=== PATIENT | male | born 1990 | race Caucasian/White ===

== ENCOUNTER 2018-02-06 20:35 | Inpatient (IN) | payer BC, OTHER ==
[~2018-02-06] VITALS: Ht 195.6 cm; Wt 77.1 kg
[2018-02-06 23:31] LABS: BASOPHILS # (AUTO) 0.1 K/uL (0.0-8.0); BASOPHILS % (AUTO) 1.2 % (0.0-2.0); EOSINOPHILS # (AUTO) 0.6 K/uL (0.0-0.7); EOSINOPHILS % (AUTO) 6.8 % (0.0-7.0); HEMATOCRIT 40.6 % (36.7-47.1); HEMOGLOBIN 14.1 g/dL (12.5-16.3); LYMPHOCYTES % (AUTO) 32.1 % (20.5-51.5); MEAN CORPUSCULAR HEMOGLOBIN 30.6 uug (23.8-33.4); MEAN CORPUSCULAR HGB CONC 35 g/dL (32.5-36.3); MEAN CORPUSCULAR VOLUME 88.3 fL (73.0-96.2); MONOCYTES # (AUTO) 0.6 K/uL (2.0-10.0); NEUTROPHILS # (AUTO) 5.1 K/uL (1.8-8.9); NEUTROPHILS % (AUTO) 53.9 % (38.5-71.5); PLATELET COUNT (AUTO) 274 K/uL (152-348); WHITE BLOOD COUNT (AUTO) 9.4 K/uL (3.6-10.2)
[2018-02-07 00:01] LABS: ALANINE AMINOTRANSFERASE 33 U/L (16-63); ALKALINE PHOSPHATASE 146 U/L (50-136); AMYLASE 69 U/L (25-115); ASPARTATE AMINOTRANSFERASE 17 U/L (15-37); BILIRUBIN,TOTAL 0.3 mg/dL (0.2-1.0); CARBON DIOXIDE 26 mmol/L (21-32); CHLORIDE 104 mmol/L (98-107); CREATININE 1.2 mg/dL (0.6-1.3); GLUCOSE 122 mg/dL (74-106); LIPASE 275 U/L (73-393); POTASSIUM 3.8 mmol/L (3.5-5.1); TOTAL PROTEIN, SERUM 7.5 g/dL (6.4-8.2); UREA NITROGEN, BLOOD 12 mg/dL (7-18)
[2018-02-07 00:04] LABS: *AMPHETAMINE, URINE NEGATIVE (NEGATIVE); *BARBITURATE, URINE NEGATIVE (NEGATIVE); *CANNABINOID, URINE NEGATIVE (NEGATIVE); *COCCAINE, URINE POSITIVE (NEGATIVE); *OPIATE, URINE POSITIVE (NEGATIVE); *PHENCYCLIDINE SCREEN,URINE NEGATIVE (NEGATIVE)
--- NOTE | 2018-02-07 00:15 | NUR ---
PRE ADMISSION NOTE PT is a 27 y/o male seen at intake, A&O x 4 and presents with anxiety, flushed skin, chills, agitation, restlessness, flat affect, slumped posture and is fidgety. Pt is ambulatory with a steady gait. Vital signs: BP 137/57, HR 74, T 98.2 F, RR 20, O2 99% on room air and Pain 0/10. Pt is allergic to Aspirin. Pt did not bring home medications. Pt reports PMH of anxiety, depression, anger and epilepsy. Pt reports last seizure was 2016. Educated Pt about rules and policies of the unit including handling of contraband and taking vital signs Q4H. Will continue care of Pt upon arrival on unit.
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
[2018-02-07] MEDS ORDERED: MIRALAX 17 GM POWD.PACK PO PRN (01:00)
[2018-02-07] MEDS ORDERED: LOPERAMIDE HCL 2 MG CAPSULE PO PRN ×2 (01:00)
[2018-02-07] MEDS ORDERED: diphenhydrAMINE 50 MG CAPSULE PO PRN (01:00)
[2018-02-07] MEDS ORDERED: MAGNESIUM HYDROXIDE 30 ML LIQUID UDC PO PRN (01:00)
[2018-02-07] MEDS ORDERED: CLONIDINE HCL 0.1 MG TABLET PO PRN (01:00)
[2018-02-07] MEDS ORDERED: BUPRENORPHINE HCL 2 MG TAB.SUBL SL PRN (01:00)
[2018-02-07] MEDS ORDERED: ONDANSETRON ODT 4 MG TAB.RAPDIS SL PRN (01:00)
[2018-02-07] MEDS ORDERED: LORAZEPAM 2 MG/1 ML VIAL IM PRN (01:00)
[2018-02-07] MEDS ORDERED: ONDANSETRON 4 MG/2 ML VIAL IM PRN (01:00)
[2018-02-07 01:11] LABS: ETHANOL < 3 MG/DL (0-0)
--- NOTE | 2018-02-07 04:00 | NUR ---
COWS DEFERRED AND VITAL SIGNS REFUSED Patient is noted in bed with eyes closed. Breathing even and non labored. COWS and vital signs not able to be completed per order. Safety measures in place. Call light within reach. Will continue to monitor.
--- NOTE | 2018-02-07 07:15 | NUR ---
END OF SHIFT Pt is a 27 y/o male admitted on 02/06/18 for opiate withdrawal. Pt presented with anxiety, flushed skin, chills, agitation, restlessness, flat affect, slumped posture and is fidgety. Pt is ambulatory with a steady gait. Pt has not started any taper yet. Pt has no scheduled medications and no PRN medication were given. Last COWS 9. Pt slept 3hours. Intake 800 ml, void 1, stool 0. Safety measures in place. Call light within reach. Pt's needs have been met. Endorsed to day shift nurse.
--- NOTE | 2018-02-07 07:40 | NUR ---
START OF SHIFT Rcvd endorse from ongoing nurse, client is in room, sounds asleep, easy to arouse, RR 18, even, non-labored, skin dry and warm to touch, flushed face noted. Last COWS 9 @ 0015. Seizure precautions in place. call light within reach.
[2018-02-07 08:10] VITALS: BP 90/60
--- NOTE | 2018-02-07 08:15 | NUR ---
COWS 10 Client reports pain on R wrist 8/10, he reports swelling, unable to assess site because client declined to removed félix bandage unless loan underwriter is going to prescribe something for him right away, notify client that MD will reassess client and he would make recommendation of care. Client appears anxious, agitated, runny nose, yawning, and difficulty concentrating. He reports stomach cramps. Client declines pain medication or comfort measures for his R wrist until seen by MD. Call light within reach.
[2018-02-07] MEDS: MULTIVITAMINS,THERAPEUTIC TABLET PO SCH (09:00)
--- NOTE | 2018-02-07 10:10 | NUR ---
Nursing note Client reports an aura before an epileptic episode, 1-2 minutes before he sees starts or feels very dizzy.
[2018-02-07] MEDS: ESCITALOPRAM OXALATE 10 MG TABLET PO SCH (11:39)
[2018-02-07 12:51] VITALS: BP 122/71
[2018-02-07] MEDS: DICYCLOMINE HCL 20 MG TABLET PO PRN (12:54)
[2018-02-07] MEDS: ACETAMINOPHEN 325 MG TABLET PO PRN (12:54)
--- NOTE | 2018-02-07 12:54 | NUR ---
COWS 17 Client presents with anxious mood, flat affect, clammy skin, tremors, runny nose, yawning, decreased appetite, and fatigue. Subutex 4mf SL, PRN Bentyl 20mg PO, Robaxin 750mg PO, Tylenol 650mg and Ibuprofen 600mg PO administered for abdominal spasms, myalgia on shoulders, and headache respectively. Call light within reach.
[2018-02-07] MEDS: METHOCARBAMOL 750 MG TABLET PO PRN (12:55)
[2018-02-07] MEDS: IBUPROFEN 600 MG TABLET PO PRN (12:55)
[2018-02-07] MEDS: BUPRENORPHINE HCL 2 MG TAB.SUBL SL SCH ×3 (13:02→22:06)
--- NOTE | 2018-02-07 13:54 | NUR ---
Reassess PRN Bentyl 20mg, Robaxin 750mg, Tylenol 650mg and Ibuprofen 600mg, client is laying in bed, eyes closed, RR 16, [id number], he stated, "The pills helped very little, I am trying to sleep to forget about my aches." Call light within reach.
[2018-02-07 16:45] VITALS: BP 105/60
[2018-02-07] MEDS: NEOMY/BACITRAC/POLYMI OINT 28.35 GM TUBE TOP SCH (16:48)
--- NOTE | 2018-02-07 16:49 | NUR ---
COWS 18 Client continues to present with agitated, anxious mood, flat affect, sweats, tremors, runny nose, teary eyes, flushed face, yawning, decreased appetite, and fatigue. Subutex 4mg SL, administered. Call light within reach.
--- NOTE | 2018-02-07 19:24 | NUR ---
END OF SHIFT Endorse client to incoming nurse, client is in room, a/o x 4, he continues to present with agitated, anxious mood, flat affect, sweats, tremors, runny nose, teary eyes, flushed face, yawning, decreased appetite, and fatigue. Last COWS 18 @ 1700. PRN medications administered and noted per protocol. Client not compliant with group therapy due to above withdrawals symptoms. Adequate Po fluid intake 2000mL, void x 5, stool x 1. Seizure precautions.Call light within reach.
--- NOTE | 2018-02-07 19:50 | NUR ---
Start of Shift Note Received 27 y/o male russell, admitted for medically withdrawals from opiate. Px was placed on 4 day Subutex taper started on 02/07/2018. Last reported COWS 18 at 1645 by AM shift nurse. During the rounds at 1950, russell is asleep on bed in fowlers position. Food and drinks noted on top of his bed side table and shelves. Bed on lowest position, side rails up 2x and call light within reach. We'll continue to monitor.
[2018-02-07 20:00] VITALS: BP 107/52
--- NOTE | 2018-02-07 20:00 | NUR ---
COWS deferred COWS deferred due to the px is asleep. To assess if the px is awake per doctor's order. We'll continue to monitor.
--- NOTE | 2018-02-07 21:50 | NUR ---
COWS 12 Px appears drowsy and depressed. Px stated that his anxiety is low because he just woke up. Px has good eye contact. Px is suspicious. Px ask the name of his nurse and wrote it on a small notebook. Px also ask about his night medications. Medications' effect and side effects were discussed. Px complained of right wrist pain of 6/10 but refused to take medications or warm compress application. He also said he has sweats, stuffy nose, teary eyes and stomach cramps. Bilateral hand tremors noted. We'll continue to monitor.
--- NOTE | 2018-02-07 21:50 | NUR ---
Px woke up Px woke up to take his night medications. Px appears drowsy and depressed. Px stated that his anxiety is low because he just woke up. Px is disheveled, unshaven and unkempt with dirty fingernails. Px is suspicious. Px ask the name of his nurse and wrote it on a small notebook. Px also ask about his night medications. Medications' effect and side effects were discussed. Px complained of right wrist pain of 6/10 but refused to take medications or warm compress application. He also said he has sweats, stuffy nose, teary eyes and stomach cramps. We'll continue to monitor.
[2018-02-07] MEDS: QUETIAPINE FUMARATE 25 MG TABLET PO SCH (22:01)
--- NOTE | 2018-02-07 22:36 | NUR ---
Reassessment COWS 12 Px stated that his anxiety is mild. Px has right wrist pain of 6/10 but refused to take medications or warm compress application. He also said he has sweats, stuffy nose, teary eyes and stomach cramps. Bilateral hand tremors noted. AL= 67. We'll continue to monitor.
[2018-02-08] VITALS: BP 113/60
--- NOTE | 2018-02-08 | NUR ---
Reassessment COWS 12 Px is still awake but looks sleepy. He stated that his anxiety is fine. Px has right wrist pain of 6/10. He has sweats, stuffy nose, teary eyes and stomach cramps. Bilateral hand tremors noted. OR= 64. We'll continue to monitor.
[2018-02-08 04:00] VITALS: BP 110/59
--- NOTE | 2018-02-08 04:00 | NUR ---
COWS deferred COWS deferred due to the px is asleep. To assess if the px is awake per doctor's order. We'll continue to monitor.
--- NOTE | 2018-02-08 07:10 | NUR ---
End of Shift Note During the shift, px didn't received any PRN medications. Last COWS 12. Px oral intake is 1000 ml, voided 2x, without BM. Px slept for 5 hours total. At 0630, px is asleep on bed in fowlers position. Bed on lowest position, side rails up 2x and call light within reach. We'll continue to monitor. Px is endorsed to AM shift.
--- NOTE | 2018-02-08 07:24 | NUR ---
Start Of Shift: Patient is a 27 yr old male who was admitted to [facility] on 02/06/18 for a medically supervised withdrawal from Opiates ( heroin), Cocaine, mushrooms and LSD. He has been placed on a 4 day Subutex taper and this is day 2. No PRN medications were given on PM shift, he slept for 5+ hours and his last COWS was 12 @ midnight. He is awake in his room at this time and requests a band aid for scab on chest which has opened up, antibiotic cream to be applied this AM.. Continue to follow MD plan of care and offer support as needed.
[2018-02-08 08:00] VITALS: BP 98/61
[2018-02-08] MEDS: MULTIVITAMINS,THERAPEUTIC TABLET PO SCH (08:49)
[2018-02-08] MEDS: ESCITALOPRAM OXALATE 10 MG TABLET PO SCH (08:49)
[2018-02-08] MEDS: NEOMY/BACITRAC/POLYMI OINT 28.35 GM TUBE TOP SCH ×2 (08:50→14:36)
--- NOTE | 2018-02-08 08:50 | NUR ---
TB placed Left forearm
[2018-02-08] MEDS ORDERED: TUBERCULIN,PURIF.PROT.DERIV. 5 TU/0.1 ML TEST ID ONE (09:00)
[2018-02-08] MEDS ORDERED: BUPRENORPHINE HCL 2 MG TAB.SUBL SL SCH (09:00)
--- NOTE | 2018-02-08 09:00 | NUR ---
COWS 11 Withdrawal symptoms include stomach spasms, restlessness, teary eyes, bilateral hand tremors, lethargy and moist clammy skin. Schedule 4MG SL Subutex given.
[2018-02-08 12:00] VITALS: BP 122/56
--- NOTE | 2018-02-08 12:20 | NUR ---
COWS 12 Withdrawal symptoms include increased agitation/irritability, restlessness, stomach irritability, aching joints and teary eyes.
--- NOTE | 2018-02-08 12:45 | NUR ---
MD Communication OK order for splint for Patients right wrist.
--- NOTE | 2018-02-08 14:35 | NUR ---
PRN Medications PRN Bentyl 20 MG Po given for stomach spasms Motrin 600mg PO , Tylenol 65 MG PO and Robaxin 750 MG PO given for C/O muscle aches and pain 01/19 Vistaril 50 MG PO given for increased anxiety and agitation will reassess
[2018-02-08] MEDS: BUPRENORPHINE HCL 2 MG TAB.SUBL SL SCH ×2 (14:36→21:56)
[2018-02-08] MEDS: IBUPROFEN 600 MG TABLET PO PRN (14:36)
[2018-02-08] MEDS: ACETAMINOPHEN 325 MG TABLET PO PRN (14:36)
[2018-02-08] MEDS: METHOCARBAMOL 750 MG TABLET PO PRN (14:36)
[2018-02-08] MEDS: DICYCLOMINE HCL 20 MG TABLET PO PRN (14:36)
[2018-02-08] MEDS: HYDROXYZINE PAMOATE 25 MG CAPSULE PO PRN (14:36)
--- NOTE | 2018-02-08 15:35 | NUR ---
PRN Reassess Bentyl 20 MG PO effective, patient reports having a bowel movement and states stomach cramps have abated. Motrin, Tylenol and Robaxin effective for pain 7/10, pain level is now 3/10 Vistaril 50 MG PO effective for anxiety and irritability.
--- NOTE | 2018-02-08 15:55 | NUR ---
COWS 12 Patient presents with stuffy nose, teary eyes, moderate to severe muscle aches, anxiety, agitation and restlessness. PRN Medications given : Bentyl for stomach cramps, Motrin, Tylenol and Robaxin for muscle aches Vistaril for anxiety/agitation.
[2018-02-08 16:00] VITALS: BP 119/63
--- NOTE | 2018-02-08 19:50 | NUR ---
End Of Shift: Patient is a 27 yr old male who was admitted to [facility] on 02/06/18 for a medically supervised withdrawal from Opiates ( Heroin), Cocaine, Psilocybin Mushrooms and LSD. He has been placed on a 4 day Subutex taper and this is day 2. Patients mood has been labile throughout the day, he can be irritable and angry or compliant and calm. His withdrawal symptoms today have included stuffy/runny nose, aching joints, stomach pain/spasms, lethargy and warm clammy skin. PRN medications given today : Motrin, Tylenol, Robaxin, Bentyl and Vistaril. He has a swollen right wrist/hand , MD ordered a splint which patient is using with félix bandage, X Ray was done which was negative for fracture. Patient has scabs on right side of chest and mid back, antibiotic ointment applied BID. He has attended groups today and is interacting with his peers. He had a fluid intake of ML, Voids and 1BM. Last COWS 12 @ 1600. Continue to follow MD plan of care and offer support as needed. Endorsed to global sales manager. Addendum: 02/08/18 at 1953 by PERCY CHINCHILLA RN he had a fluid intake of 2000 ML, 3 Voids and 1BM
[2018-02-08 20:00] VITALS: BP 107/58
--- NOTE | 2018-02-08 20:00 | NUR ---
COWS deferred COWS deferred due to the px is asleep. To assess if the px is awake per doctor's order. We'll continue to monitor.
--- NOTE | 2018-02-08 20:00 | NUR ---
Start of Shift Note Received 27 y/o male px, admitted for medically withdrawals from opiate. Px was placed on 4 day Subutex taper started on 02/07/2018. Last reported COWS 12 by AM shift nurse. During the rounds at 2000, px is asleep on bed in fowlers position. Food and drinks all over the top of bed side table and shelves. Bed on lowest position, side rails up 2x and call light within reach. We'll continue to monitor.
[2018-02-08] MEDS: QUETIAPINE FUMARATE 25 MG TABLET PO SCH (21:00)
--- NOTE | 2018-02-08 21:50 | NUR ---
COWS 12 Px just woke up. Px looks sleepy. He stated that his anxiety is mild. Px has right wrist pain of 5/10. He has sweats, stuffy nose, teary eyes and stomach cramps. Bilateral hand tremors noted. DC= 60. We'll continue to monitor.
--- NOTE | 2018-02-08 21:50 | NUR ---
Seroquel refused Px refused to take Seroquel 50 mg PO scheduled tonight. Px stated "I don't have problems in sleeping. I sleep pretty good."
[2018-02-08 22:09] LABS: HEPATITIS B SURFACE AG Negative (Negative)
--- NOTE | 2018-02-08 22:30 | NUR ---
COWS 10 Px looks drowsy and wanted to sleep. He stated that his anxiety is still mild. Px has right wrist pain of 5/10. He has sweats, stuffy nose, teary eyes and stomach cramps. Bilateral hand tremors noted. OR= 58. We'll continue to monitor.
[2018-02-09] VITALS: BP 101/55
--- NOTE | 2018-02-09 | NUR ---
COWS deferred COWS deferred due to the patient is asleep. To assess if the px is awake per doctor's order. We'll continue to monitor.
--- NOTE | 2018-02-09 03:15 | NUR ---
COWS 9 Px woke up and requesting to go smoke. Px looks drowsy. He stated that his anxiety is still mild. Px has right wrist pain of 5/10. He has sweats, stuffy nose, teary eyes and stomach cramps. Bilateral hand tremors noted. SD= 59. We'll continue to monitor.
[2018-02-09 04:00] VITALS: BP 97/62
--- NOTE | 2018-02-09 07:05 | NUR ---
End of Shift Note During the shift, russell didn't received any PRN medications. He refused the scheduled Seroquel 100 mg PO last night. Px woke up around 0315,smoked a cigarette and ate snack. COWS scored at 9. Px oral intake is 1200 ml, voided 4x, without BM. Px slept for 9 hours total. At 0630, russell is asleep on bed in fowlers position. Bed on lowest position, side rails up 2x and call light within reach. We'll continue to monitor. Px is endorsed to AM shift.
[2018-02-09] MEDS: MAG HYDROX/AL HYDROX/SIMETH 30 ML LIQUID UDC PO PRN ×2 (07:47→22:19)
[2018-02-09 08:00] VITALS: BP 115/58
--- NOTE | 2018-02-09 08:02 | NUR ---
START OF SHIFT: Received Pt A/O X 4. He presents with guarded affect and anxious mood. He is disheveled and odorous. Encourage shower today.He reports anxiety,restlessness and night sweats. He c/o tightness in his chest and states that it's common and has experienced chest tightness in the past when he is anxious. COWS 8 Subutex taper in progress. Numerous empty bottles of soda on bedside table.PRN Mylanta given to assist with tightness in chest.Will administer PRN Vistaril for anxiety. Encouraged him to avoid soda and acidic food. Encouraged group attendance to improve coping skills and prevent relapse. Will continue to monitor and manage s/s of w/d. Addendum: 02/09/18 at 0828 by CLAUDIA LOTT RN Correction COWS 9 at 0800
--- NOTE | 2018-02-09 09:00 | NUR ---
PRN mylanta effective.Pt denies chest tightness and discomfort at this time.
[2018-02-09] MEDS: HYDROXYZINE PAMOATE 25 MG CAPSULE PO PRN (09:13)
[2018-02-09] MEDS: MULTIVITAMINS,THERAPEUTIC TABLET PO SCH (09:13)
[2018-02-09] MEDS: ESCITALOPRAM OXALATE 10 MG TABLET PO SCH (09:13)
[2018-02-09] MEDS: BUPRENORPHINE HCL 2 MG TAB.SUBL SL SCH ×3 (09:14→22:20)
[2018-02-09] MEDS: NEOMY/BACITRAC/POLYMI OINT 28.35 GM TUBE TOP SCH ×2 (09:14→17:00)
--- NOTE | 2018-02-09 10:15 | NUR ---
PRN Vistaril effective. Pt states he feels less anxious. Will continue to monitor and manage s/s of w/d.
[2018-02-09 12:00] VITALS: BP 121/63
[2018-02-09 16:00] VITALS: BP 118/68
--- NOTE | 2018-02-09 16:00 | NUR ---
COWS 10. He reports stomach cramps,anxiety,low energy,restlessness and intermittent chills and sweats.
--- NOTE | 2018-02-09 16:41 | NUR ---
Therapist prompted client to attend twice daily group therapy sessions.
--- NOTE | 2018-02-09 18:55 | NUR ---
END OF SHIFT: Pt continues on Subutex taper to manage s/s of w/d which include anxiety,body aches, restlessness,stomach cramps and intermittent chills and sweats.Last COWS 10 He was compliant with group attendance and interacted with peers. His appetite is good. Will pass shift report to oncoming night nurse.
[2018-02-09 20:00] VITALS: BP 117/68
--- NOTE | 2018-02-09 20:00 | NUR ---
Start of Shift Note Received 27 y/o male russell, admitted for medically withdrawals from opiate. Px was placed on 4 day Subutex taper started on 02/07/2018. Last reported COWS 10 by AM shift nurse. During the rounds at 1999, px is awake standing inside his room. Px appears anxious with good eye contact. Px is disheveled, unkempt, and odorous. Px was encouraged to take a shower. Px stated that he has chest pain and abdominal pain and has a lot of flatus today. Anxiety is 3-4/10. Px also complains of stomach cramps. Food and drinks all over the top of bed side table and shelves. Bed on lowest position, side rails up 2x and call light within reach. We'll continue to monitor.
--- NOTE | 2018-02-09 20:00 | NUR ---
COWS 11 Px appears anxious. Px stated that he has abdominal pain with flatus and chest pains all over. He has sweats, stuffy nose, and stomach cramps. Bilateral hand tremors noted. AZ= 86. We'll continue to monitor.
[2018-02-09] MEDS: DICYCLOMINE HCL 20 MG TABLET PO PRN (22:19)
[2018-02-09] MEDS: METHOCARBAMOL 750 MG TABLET PO PRN (22:19)
--- NOTE | 2018-02-09 22:19 | NUR ---
PRN medications Px received Mylanta 30 ml for flatus and abdominal aches, Robaxin 750 mg PO for muscular pain and Bentyl 20 mg PO for stomach cramps. To recheck after an hour. We'll continue to monitor.
[2018-02-09] MEDS: QUETIAPINE FUMARATE 25 MG TABLET PO SCH (22:20)
--- NOTE | 2018-02-09 23:20 | NUR ---
Reassessments Px stated that his condition improved from 9/10 to 4-5/10 pain scale. We'll continue to monitor.
[2018-02-10] VITALS: BP 110/69
--- NOTE | 2018-02-10 | NUR ---
COWS deferred COWS deferred due to the patient is asleep. To assess if the px is awake per doctor's order. We'll continue to monitor.
[2018-02-10 04:00] VITALS: BP 109/64
--- NOTE | 2018-02-10 04:00 | NUR ---
COWS deferred COWS deferred due to the patient is asleep. To assess if the px is awake per doctor's order. We'll continue to monitor.
--- NOTE | 2018-02-10 05:30 | NUR ---
COWS 9 Px woke up and requesting to go smoke. Px looks drowsy. He stated that his anxiety is mild. Px has mild pain on chest. He has sweats, stuffy nose, and teary eyes. Bilateral hand tremors noted. AR= 73. We'll continue to monitor.
--- NOTE | 2018-02-10 07:10 | NUR ---
End of Shift Note During the shift at 2219, px received Bentyl 20 mg PO for stomach cramps, Robaxin 750 mg PO for chest pain and Mylanta 30 ml PO for flatus. They were effective. Px woke up around 0530, smoked a cigarette and ate snack. COWS scored at 9. Px oral intake is 2500 ml, voided 7x, without BM. Px slept for 5 hours total. At 0630, px is asleep on bed in fowlers position. Bed on lowest position, side rails up 2x and call light within reach. We'll continue to monitor. Px is endorsed to AM shift.
[2018-02-10 08:00] VITALS: BP 97/60
--- NOTE | 2018-02-10 08:20 | NUR ---
START OF SHIFT: Received Pt A/O X 4. He presents with guarded affect and anxious mood. He is disheveled .He reports anxiety,restlessness and night sweats. COWS 9 Subutex taper in progress. Encouraged group attendance to improve coping skills and prevent relapse. Will continue to monitor and manage s/s of w/d
[2018-02-10] MEDS ORDERED: BUPRENORPHINE HCL 2 MG TAB.SUBL SL SCH (09:00)
[2018-02-10] MEDS: ESCITALOPRAM OXALATE 10 MG TABLET PO SCH (09:25)
[2018-02-10] MEDS: MULTIVITAMINS,THERAPEUTIC TABLET PO SCH (09:25)
[2018-02-10] MEDS: NEOMY/BACITRAC/POLYMI OINT 28.35 GM TUBE TOP SCH ×2 (09:25→17:00)
[2018-02-10 12:00] VITALS: BP 110/60
--- NOTE | 2018-02-10 12:00 | NUR ---
COWS 9 Pt reports mild body aches and anxiety.
[2018-02-10 16:00] VITALS: BP_SYST 123; BP_DIAS 65; BP_DIAS 85
--- NOTE | 2018-02-10 18:31 | NUR ---
END OF SHIFT: Pt continues on Subutex taper completed. He reports anxiety,body aches and restlessness. Last COWS 7. He was compliant with group attendance and interacted with peers. He is scheduled for discharge tomorrow and expressed motivation to stay clean. Will pass shift report to [facility] night nurse. Addendum: 02/10/18 at 1917 by CLAUDIA LOTT RN Subutex taper completed.
--- NOTE | 2018-02-10 19:30 | NUR ---
START OF SHIFT Received 27 year old male patient admitted on 02/06/18 for Opiate withdrawal. Pt is alert and oriented x4. He complains of 9/10 body aches, chills, sweats, moderate anxiety, restlessness, watery eyes, and stuffy nose. Pt is fidgety and unable to sit still. He completed a 4 day Subutex taper and is scheduled to be DC tomorrow. Location is pending. Last COWS:7 at 1600. Breathing is even and unlabored, safety measures in place. Will monitor.
[2018-02-10 20:00] VITALS: BP 126/71
--- NOTE | 2018-02-10 20:00 | NUR ---
COWS Pt complains of stuffy nose, watery eyes, abdominal cramps, restlessness, anxiety and agitation. COWS:9. Will continue to monitor.
[2018-02-10] MEDS ORDERED: METH-406 PO (21:00)
[2018-02-10] MEDS ORDERED: ESCI10TA PO (21:00)
[2018-02-10] MEDS ORDERED: CLON0.1T14 PO (21:00)
[2018-02-10] MEDS ORDERED: DIPH50CA37 PO (21:00)
[2018-02-10] MEDS ORDERED: QUET25TA PO (21:00)
[2018-02-10] MEDS ORDERED: HYDR-3895 PO (21:00)
[2018-02-10] MEDS: METHOCARBAMOL 750 MG TABLET PO PRN (21:43)
[2018-02-10] MEDS: QUETIAPINE FUMARATE 25 MG TABLET PO SCH (21:43)
--- NOTE | 2018-02-10 21:43 | NUR ---
PRN ROBAXIN Pt complains of body aches. PRN Robaxin administered as ordered. Safety measures in place. Will monitor effectiveness.
--- NOTE | 2018-02-10 22:43 | NUR ---
PRN ROBAXIN REASSESSMENT PRN medication effective. Pt reports decrease in body aches and states " yeah, it helped a lot" Safety measures in place. Will monitor.
--- NOTE | 2018-02-11 | NUR ---
COWS Pt complains of body aches, stuffy nose and anxiety. Pt appears drowsy and reports he is ready to sleep soon. COWS:6. Will monitor.
[2018-02-11 00:08] VITALS: BP 123/70
[2018-02-11 04:10] VITALS: BP 118/67
--- NOTE | 2018-02-11 04:11 | NUR ---
COWS DEFERRED 0400 COWS deferred d/t pt is lying in bed with eyes closed and is asleep. Breathing is even and unlabored, safety measures in place. Will continue to monitor.
--- NOTE | 2018-02-11 07:06 | NUR ---
END OF SHIFT Pt is a 27 year old male patient admitted on 02/06/18 for Opiate withdrawal. He remains alert and oriented x 4. He complained of body aches, chills, sweats, moderate anxiety, restlessness, watery eyes, and stuffy nose during the shift. He is scheduled to be DC today, location is pending. At 2143 he received PRN Robaxin d/t body aches. He slept a total of 7 hrs, Intake:855mL, Void:x1, BM:0, COWS:6 at 0000. Breathing is even and unlabored, safety measures in place. Will endorse to AM shift.
--- NOTE | 2018-02-11 07:45 | NUR ---
START OF SHIFT Endorse rcvd from ongoing nurse, client is in bed, he is a/o x 4, he presents with anxious mood, flat affect, avoidant gaze, and clammy skin. Client reports feeling really tired due to inability to sleep, anxious, stomach cramps, and generalized body aches. Client completed 4 day Subutex taper. Last COWS 6 @ 1999. PRN Robaxin 750mg PO for myalgia. Client slept 7 hrs. Seizure precautions. Bed in lowest/locked position. Call light within reach.
[2018-02-11 08:10] VITALS: BP 116/60
--- NOTE | 2018-02-11 08:10 | NUR ---
COWS 7 Client is in room, he presents with anxiety, agitation, flat affect, avoidant gaze, tremors felt, and difficulty concentrating. Client reports feeling depressed, anxious, decreased appetite, and anhedonia. Scheduled medications administered. Call light within reach.
[2018-02-11] MEDS: ESCITALOPRAM OXALATE 10 MG TABLET PO SCH (09:46)
[2018-02-11] MEDS: NEOMY/BACITRAC/POLYMI OINT 28.35 GM TUBE TOP SCH ×2 (09:46→16:35)
[2018-02-11] MEDS: MULTIVITAMINS,THERAPEUTIC TABLET PO SCH (09:46)
[2018-02-11 12:55] VITALS: BP 108/68
--- NOTE | 2018-02-11 12:59 | NUR ---
COWS 6 Client presents with anxiety, flat affect, avoidant gaze, tremors felt, and difficulty concentrating. Client reports anxious, depressed, decreased appetite, and fatigue. Call light within reach.
[2018-02-11 16:37] VITALS: BP 128/76
--- NOTE | 2018-02-11 19:20 | NUR ---
END OF SHIFT Endorse client to incoming nurse, client is in room, a/o x 4, he continues to present with depressed, anxious mood, flat affect,decreased appetite, and fatigue. Client is schedule for discharge to [facility], [facility]. Last COWS 6 @ 1600. Client not compliant with group therapy. Adequate PO fluid intake 2900mL, void x 6, stool x 4. Seizure precautions.Call light within reach.
[2018-02-11 19:30] VITALS: BP 118/74
--- NOTE | 2018-02-11 19:30 | NUR ---
START OF SHIFT Received 27 year old male patient admitted on 02/06/18 for Heroin withdrawal. Pt is alert and oriented x4. He complains of anxiety and is noted with flat affect and withdrawn behavior. Pt appears disheveled and unkempt with dirty fingernails. He completed his 4 day Subutex taper and is scheduled to be discharged tonight to [facility]. Per endorsement, he did not receive PRN medications. Pt still noted with right hand wrapped in félix bandage with splint. No complaints of pain. Last COWS:6 at 1600. Breathing is even and unlabored, safety measures in place. Will monitor.
--- NOTE | 2018-02-11 19:35 | NUR ---
COWS Pt complains of increased anxiety related to discharge and is noted to be restless. COWS:6.
--- NOTE | 2018-02-11 20:08 | NUR ---
DISCHARGE NOTE Pt is in stable condition, vitals WNL, skin intact, denies suicidal ideation or homicidal ideations, all discharge paper work signed and dated, pt was discharged from [facility] on 02/11/18 at 2007. Pt left the building with all of his medications, belongings and prescriptions. MD lucero.
== END 2018-02-11 20:08 | disposition other institution (70) | DRG 895 ==
LOC: SRC 22:56
PROVIDERS: ADMIT Family Medicine Addiction Medicine; ATTEND Family Medicine Addiction Medicine
PROC: HZ2ZZZZ Detoxification Services for Substance Abuse Treatment (ICD-10-PCS; principal; 2018-02-06)
PROC: HZ51ZZZ Individual Psychotherapy for Substance Abuse Treatment, Behavioral (ICD-10-PCS; 2018-02-08)
DX: F11.23 Opioid dependence with withdrawal (principal); F33.9 Major depressive disorder, recurrent, unspecified; Z81.1 Family history of alcohol abuse and dependence; Z59.0 Homelessness; G40.909 Epilepsy, unspecified, not intractable, without status epilepticus; F41.9 Anxiety disorder, unspecified; F16.90 Hallucinogen use, unspecified, uncomplicated; Z81.8 Family history of other mental and behavioral disorders; M25.532 Pain in left wrist; F17.210 Nicotine dependence, cigarettes, uncomplicated; Z59.1 Inadequate housing
CPT/HCPCS: 36415; 70030-TC; 73110; 73130; 80307; 83690; 83735; 84443; 85025; 86592; 86705; 86803; 87340; 87806; A4663; G0480